=== PATIENT | female | born 1950 | race Caucasian/White ===

== ENCOUNTER 2018-05-15 17:06 | Emergency (ER) | payer MEDICARE, OTHER ==
[2018-05-15 17:28] VITALS: BP 155/52
--- NOTE | 2018-05-15 17:42 | EDM.PDOC ---
ED HPI GENERAL MEDICAL PROBLEM - General Chief Complaint: Head Injury Stated Complaint: FELL AND HIT HEAD Time Seen by Provider: 05/15/18 17:41 Source of Information: Reports: Patient - History of Present Illness INITIAL COMMENTS - FREE TEXT/NARRATIVE: 68 years old female patient presented with a chief complaint of fall and head injury. Patient tripped and hit her right side of the forehead to the edge of systolic. Denies any loss of consciousness. Denies any focal weakness or numbness anywhere. Complaining mild frontal headache and blurry vision around her right eye. Denies any neck pain or back pain. Denies any chest pain shortness breath. Denies any abdominal pain diarrhea or constipation. Denies any urinary symptom. - Related Data Allergies Allergy/AdvReac Type Severity Reaction Status Date / Time plastic tape Allergy Rash Uncoded 05/15/18 17:19 Home Meds: Home Meds DULoxetine [Cymbalta] 60 mg PO BEDTIME 04/12/13 [History] Metoprolol Succinate [Toprol XL] 50 mg PO BEDTIME 04/12/13 [History] Valsartan [Diovan] 160 mg PO DAILY 04/12/13 [History] Levothyroxine 125 mcg PO ACBRK #35 tablet 06/02/13 [Rx] Gabapentin [Neurontin] 600 mg PO BID 03/18/17 [History] Past Medical History - Past Health History Medical/Surgical History: Denies Medical/Surgical History Cardiovascular History: Reports: Hypertension Neurological History: Reports: Neuropathy, Peripheral, Vertigo Endocrine/Metabolic History: Reports: Hypothyroidism - Past Surgical History Female Surgical History: Reports: Tubal Ligation Musculoskeletal Surgical History: Reports: Knee Replacement Social & Family History - Tobacco Use Smoking Status *Q: Never Smoker ED ROS GENERAL - Review of Systems Review Of Systems: ROS reveals no pertinent complaints other than HPI. ED EXAM, HEAD INJURY - Physical Exam Exam: See Below Exam Limited By: No Limitations General Appearance: Alert, WD/WN, No Apparent Distress Head: Normocephalic, Other (5 mm abrasion over the right forehead. Bleeding controlled.) Ears: Normal External Exam, Normal Canal, Other (Bruises all Z right side of the forehead and mild ecchymosis of the right eyebrow. Pupils equal and reactive. EOMi intact.) Nose: Normal Inspection, Normal Mucousa Throat/Mouth: Normal Inspection Neck: Non-Tender, Full Range of Motion, Normal Alignment, Normal Inspection. No : Muscle Spasm, Painful Range of Motion, Stiff Neck, Tenderness, Tender Midline Respiratory: No Respiratory Distress, Lungs Clear, Normal Breath Sounds, No Accessory Muscle Use, Chest Non-Tender, Respiratory Distress. No: Crackles, Rales, Rhonchi, Wheezing Cardiovascular: Normal Peripheral Pulses, Regular Rate, Rhythm, No Edema, No Gallop, No JVD, No Murmur, No Rub. No: Bradycardia, Tachycardia, Diastolic Murmur, Systolic Murmur GI/Abdominal Exam: Normal Bowel Sounds, Soft, Non-Tender, No Organomegaly, No Distention, No Abnormal Bruit Back Exam: Normal Inspection, Full Range of Motion. No: CVA Tenderness (R), CVA Tenderness (L), Decreased Range of Motion, Muscle Spasm, Vertebral Tenderness Extremities: Normal Inspection, Normal Range of Motion, Non-Tender, Normal Capillary Refill. No: Pedal Edema Neurologic: rooming house inspector II-XII nml As Tested, No Motor/Sensory Deficits, Alert, Normal Mood/Affect, Oriented x 3. No: Abnormal rooming house inspector II-XII, Abnormal Gait, Motor Weakness, Sensory Deficit Course - Vital Signs Text/Narrative:: Patient was seen and examined shortly after arrival. Stable. She stated her last tetanus within the last 10 years. I did order CT head. Patient care transferred to in a stable condition pending ct result, further management and disposition.. Last Recorded V/S: Last Vital Signs Temp 36.5 C 05/15/18 17:26 Pulse 67 05/15/18 17:26 Resp 14 05/15/18 17:26 BP 155/52 H 05/15/18 17:26 Pulse Ox 98 05/15/18 17:26 - Orders/Labs/Meds Orders: Active Orders 24 hr Category Date Time Status Head wo Cont [CT] Stat Exams 05/15/18 17:49 Taken Departure - Departure Time of Disposition: 18:30 Disposition: Home, Self-Care 01 Clinical Impression: Head injury - Discharge Information Referrals: PCP,None [Primary Care Provider] - Forms: ED Department Discharge - My Orders Last 24 Hours: My Active Orders 05/15/18 17:49 Head wo Cont [CT] Stat - Assessment/Plan Last 24 Hours: My Active Orders 05/15/18 17:49 Head wo Cont [CT] Stat
== END 2018-05-15 18:52 | disposition home or self-care (01) ==
LOC: JP.ED 17:06
DX: S09.90XA Unspecified injury of head, initial encounter (principal); S00.81XA Abrasion of other part of head, initial encounter; Z79.899 Other long term (current) drug therapy; Z91.09 Other allergy status, other than to drugs and biological substances; W01.10XA Fall on same level from slipping, tripping and stumbling with subsequent striking against unspecified object, initial encounter
CPT/HCPCS: 70450; 99284-25

== ENCOUNTER 2018-11-13 19:08 | Emergency (ER) | payer OTHER, MEDICARE ==
[2018-11-13 20:45] VITALS: BP 185/59; PULSE 86
[2018-11-13] MEDS ORDERED: Diphtheria,Pertussis(Acell),Tetanus Vaccine 0.5 ML SDV IM ONE (20:47)
[2018-11-13] MEDS ORDERED: Bacitracin Oint 1 GM U/D Packet TOP ONE (20:49)
[2018-11-13] MEDS ORDERED: Lidocaine 1% 20 ML MDV INJECT ONE (20:49)
[2018-11-13] MEDS ORDERED: Amoxicillin/Clavulanate K 875-125 MG Tab PO ONE (20:49)
--- NOTE | 2018-11-13 21:58 | EDM.PDOC ---
ED HPI GENERAL MEDICAL PROBLEM - General Chief Complaint: Bite:Animal, Insect Stated Complaint: BITTEN BY DOG ON RIGHT ARM Time Seen by Provider: 11/13/18 21:59 Source of Information: Reports: Patient History Limitations: Reports: No Limitations - History of Present Illness INITIAL COMMENTS - FREE TEXT/NARRATIVE: pt arrived with multiple dog bites where her own dog bite her, The dog is no ill and had done this before when he has gotten upset. tHE DOG DOES NOT HAVE SHOTS. sHE WAS ADVISED THAT SHE WOULD NEED TO OBSERVE HIM AND IF THERE WAS ANY QUESTION OF ILLNESS HE NEEDED TO BE EXAMINED. Onset: Today, Sudden Duration: Hour(s): Location: Reports: Upper Extremity, Right Associated Symptoms: Reports: No Other Symptoms right hand/wrist Pain Score (Numeric/FACES): 4 - Related Data Allergies Allergy/AdvReac Type Severity Reaction Status Date / Time plastic tape Allergy Rash Uncoded 11/13/18 21:26 Home Meds: Home Meds DULoxetine [Cymbalta] 60 mg PO BEDTIME 04/12/13 [History] Metoprolol Succinate [Toprol XL] 50 mg PO BEDTIME 04/12/13 [History] Valsartan [Diovan] 160 mg PO DAILY 04/12/13 [History] Levothyroxine 125 mcg PO ACBRK #35 tablet 06/02/13 [Rx] Gabapentin [Neurontin] 600 mg PO BID 03/18/17 [History] Past Medical History - Past Health History Medical/Surgical History: Denies Medical/Surgical History Cardiovascular History: Reports: Hypertension Neurological History: Reports: Neuropathy, Peripheral, Vertigo Endocrine/Metabolic History: Reports: Hypothyroidism - Past Surgical History Female Surgical History: Reports: Tubal Ligation Musculoskeletal Surgical History: Reports: Knee Replacement Social & Family History - Tobacco Use Smoking Status *Q: Never Smoker - Caffeine Use Caffeine Use: Reports: Soda - Recreational Drug Use Recreational Drug Use: No ED ROS GENERAL - Review of Systems Review Of Systems: See Below Constitutional: Reports: No Symptoms HEENT: Reports: No Symptoms Respiratory: Reports: No Symptoms Cardiovascular: Reports: No Symptoms Endocrine: Reports: No Symptoms GI/Abdominal: Reports: No Symptoms : Reports: No Symptoms Musculoskeletal: Reports: Other ( DOG BITE TO THE RT HAND. ) Skin: Reports: No Symptoms Neurological: Reports: No Symptoms ED EXAM, ANIMAL BITE - Physical Exam Exam: See Below Text/Narrative:: PT HAS SEVERAL PUNCTURE WOUNDS FROM THE DOG BITE. oN THE PATEL ASPECT OF THE WRIST SHE HAS A RAGGED 1 INCH LACERATION . oN THE DORSAL ASPECT OF THE HAND THE PT HAS A FLAP TYPE LACWRATION 1/4 INCH. sHE HAS ANOTHER PUCTURE THAT IS 1/4 INCH ALL WERE LOOSE STITCHED TO BRING THEM TOGETHER ONLY. pRIOR TO STITCHING THE AREA WAS CKLEANSED WELL AND INFILTRATED WITH LIDOCAINE. Exam Limited By: No Limitations General Appearance: Alert Extremities: Other ( dOG BITE TO THE RT HAND SEE THE DESCRIPTION OF THE WOUNDS ABOVE. ) Course - Vital Signs Last Recorded V/S: Last Vital Signs Temp 36.4 C 11/13/18 21:26 Pulse 86 11/13/18 21:26 Resp 16 11/13/18 21:26 BP 185/59 H 11/13/18 21:26 Pulse Ox 94 L 11/13/18 21:26 - Orders/Labs/Meds Orders: Active Orders 24 hr Category Date Time Status Vaccines to be Administered [RC] PER UNIT ROUTINE Care 11/13/18 20:47 Active Meds: Medications Discontinued Medications Generic Name Dose Route Start Last Admin Trade Name Sungq PRN Reason Stop Dose Admin Amoxicillin/Clavulanate Potassium 1 tab 11/13/18 20:49 Augmentin 875 Mg/125 Mg PO 11/13/18 20:50 ONETIME ONE Bacitracin 1 dose 11/13/18 20:49 11/13/18 21:28 Bacitracin Oint 1 Gm TOP 11/13/18 20:50 1 dose ONETIME ONE Administration Diphtheria/Tetanus/Acell Pertussis 0.5 ml 11/13/18 20:47 Adacel IM 11/13/18 20:48 .ONCE ONE Lidocaine HCl 5 ml 11/13/18 20:48 Xylocaine-Mpf 1% INJECT 11/13/18 20:49 ONETIME ONE Lidocaine HCl 20 ml 11/13/18 20:49 11/13/18 21:28 Xylocaine 1% INJECT 11/13/18 20:50 20 ml ONETIME ONE Administration - Re-Assessments/Exams Free Text/Narrative Re-Assessment/Exam: 11/13/18 22:06 PT WAS GIVEN A TDAP. tHE WOUNDS WERE CLEANSED WELL. INFILTRATED WITH LIDOCAINE, CLOSED LOOSELY DECRIBED ABOVE. tHEY WERE DRESSED WITH BACATRACIN AND DRESSED. WITH A PRESSURE DRESSING. sHE WAS GIVEN A TDAP. Departure - Departure Time of Disposition: 21:56 Disposition: Home, Self-Care 01 Condition: Fair Clinical Impression: Dog bite - Discharge Information Referrals: Breana Krishna MD [Primary Care Provider] - Forms: ED Department Discharge Care Plan Goals: apply bacatracin to the wounds daily, keep dry do not soak, augmentin [id number]. While on antibiotic use probiotic to prevent diarrhea. Suture removal in 7-8 days. hERE DOG IS A INDOOR DOG AND DOES NOT HAVE SHOTS. sHE WILL OBSERVE THE DOG OVER THE NEXT 10 DAYS AND IF THERE IS ANY SIGN OF ILLNESS HE WILL NEED TO BE EXAMINED. - My Orders Last 24 Hours: My Active Orders 11/13/18 20:47 Vaccines to be Administered [RC] PER UNIT ROUTINE - Assessment/Plan Last 24 Hours: My Active Orders 11/13/18 20:47 Vaccines to be Administered [RC] PER UNIT ROUTINE
== END 2018-11-13 22:26 | disposition home or self-care (01) ==
LOC: JP.ED 19:08
DX: S61.451A Open bite of right hand, initial encounter (principal); I10 Essential (primary) hypertension; E03.9 Hypothyroidism, unspecified; Z23 Encounter for immunization; Z91.048 Other nonmedicinal substance allergy status; Z79.899 Other long term (current) drug therapy; W54.0XXA Bitten by dog, initial encounter
CPT/HCPCS: 12002; 90471; 90715; 99282; A9270; J2001; 99283